=== PATIENT | female | born 1995 | race Two or more races ===

== ENCOUNTER 2024-10-09 15:49 | Emergency (ER) | payer OTHER ==
[~2024-10-09] VITALS: Ht 165.1 cm; Wt 98.4 kg
[2024-10-09] MEDS ORDERED: PRENATAL + DHA1 EAC1 (16:00)
[2024-10-09 16:01] VITALS: BP 113/74; O2SAT 99
[2024-10-09] MEDS ORDERED: CHILDREN'S ASPI81 MG (16:01)
[2024-10-09 17:00] LABS: HEMATOCRIT 31.8 % (36.0-45.00); HEMOGLOBIN 11.3 g/dL (12.0-15.00); MEAN CORPUSCULAR HEMOGLOBIN 29.1 pg (27.00-32.0); MEAN CORPUSCULAR HGB CONC 35.4 g/dl (32.0-36.0); PLATELET COUNT 338 K/uL (150-450); RED BLOOD COUNT 3.88 M/uL (4.00-6.00); RED CELL DISTRIBUTION WIDTH 14.7 % (11.5-14.5)
[2024-10-09 17:13] LABS: URINE APPEARANCE Cloudy; URINE BILIRRUBIN Negative (NEGATIVE); URINE BLOOD Small; URINE COLOR Yellow; URINE GLUCOSE Negative (NEGATIVE); URINE KETONE Negative (NEGATIVE); URINE LEUKOCYTE Moderate; URINE NITRATE Negative; URINE PROTEIN Negative (NEGATIVE)
[2024-10-09 17:17] LABS: URINE BACTERIA 4079.3 uL (0.0-1933); URINE EPITHELIAL CELLS 23.5 uL (0.0-38.8); URINE RBC 52.5 uL (0.0-20.8); URINE WBC 140.8 uL (0.0-23.2)
[2024-10-09 17:50] LABS: URINE CAST 1.03 uL (0.0-1.40)
[2024-10-09] MEDS ORDERED: NITROFURANTOIN100 MG PO (17:58)
[2024-10-09] MEDS ORDERED: PEPCID AC20 MG PO (17:58)
== END 2024-10-09 18:42 | disposition home or self-care (01) ==
LOC: ER 15:51
PROVIDERS: General Practice
DX: O26.891 Other specified pregnancy related conditions, first trimester (principal); Z3A.11 11 weeks gestation of pregnancy; Z88.0 Allergy status to penicillin

== ENCOUNTER 2024-10-28 19:43 | Emergency (ER) | payer OTHER ==
[~2024-10-28] VITALS: Ht 165.1 cm; Wt 94.8 kg
[~2024-10-28 19:43] MED LIST: CHILDREN'S ASPI81 MG; NITROFURANTOIN100 MG PO; PEPCID AC20 MG PO; PRENATAL + DHA1 EAC1
[2024-10-28] MEDS ORDERED: 0.9 % SODIUM CHLORIDE 500 ML IV ONE (21:45)
[2024-10-28 23:12] LABS: HEMATOCRIT 31.5 % (36.0-45.00); HEMOGLOBIN 10.6 g/dL (12.0-15.00); MEAN CELL VOLUME 84.4 fL (80.00-100.00); MEAN CORPUSCULAR HEMOGLOBIN 28.3 pg (27.00-32.0); MEAN CORPUSCULAR HGB CONC 33.6 g/dl (32.0-36.0); PLATELET COUNT 386 K/uL (150-450); RED BLOOD COUNT 3.74 M/uL (4.00-6.00); RED CELL DISTRIBUTION WIDTH 14.5 % (11.5-14.5)
[2024-10-28 23:31] LABS: ALBUMIN 3.3 gm/dL (3.4-5.0); BILIRUBIN TOTAL 0.21 mg/dL (0.3-1.2); CALCIUM 9.7 mg/dL (8.5-10.1); CREATININE SERUM 0.54 mg/dL (0.55-1.02); GFR 133.47; GLOBULINA 4.4 G/DL (2.4-3.5); POTASSIUM 3.73 mEq/L (3.5-5.1); TOTAL PROTEIN 7.7 gm/dL (6.4-8.2)
[2024-10-29] MEDS ORDERED: KETOROLAC TROMETHAMINE 30 MG VIAL IV ONE (00:30)
== END 2024-10-29 01:03 | disposition home or self-care (01) ==
LOC: ER 19:46
PROVIDERS: Preventive Medicine Public Health & General Preventive Medicine
DX: R51.9 Headache, unspecified (principal); Z88.0 Allergy status to penicillin; E86.0 Dehydration
CPT/HCPCS: 36415; 96365; 96366; 99282; J7030

== ENCOUNTER 2024-10-30 11:21 | Outpatient (CLI) | payer OTHER | END 2024-10-30 11:25 | disposition home or self-care (01) | LOC: PRENATAL 11:21 | PROVIDERS: ATTEND Obstetrics & Gynecology Maternal & Fetal Medicine | DX: O36.80X0 Pregnancy with inconclusive fetal viability, not applicable or unspecified (principal); Z36.82 Encounter for antenatal screening for nuchal translucency; O36.1999 Maternal care for other isoimmunization, unspecified trimester, other fetus; Z3A.13 13 weeks gestation of pregnancy ==

== ENCOUNTER 2024-12-01 15:18 | Emergency (ER) | payer OTHER ==
[~2024-12-01] VITALS: Ht 162.6 cm; Wt 95.3 kg
== END 2024-12-01 19:34 | disposition home or self-care (01) ==
LOC: ER 15:21
DX: O26.892 Other specified pregnancy related conditions, second trimester (principal); R10.2 Pelvic and perineal pain; Z3A.18 18 weeks gestation of pregnancy; Z88.0 Allergy status to penicillin

== ENCOUNTER 2024-12-18 15:34 | Outpatient (CLI) | payer OTHER | END 2024-12-18 15:35 | disposition home or self-care (01) | LOC: PRENATAL 15:34 | PROVIDERS: ATTEND Obstetrics & Gynecology Maternal & Fetal Medicine | DX: O44.00 Complete placenta previa NOS or without hemorrhage, unspecified trimester (principal); O36.1999 Maternal care for other isoimmunization, unspecified trimester, other fetus; Z3A.21 21 weeks gestation of pregnancy ==

== ENCOUNTER → 2025-02-09 14:53 | Outpatient (CLI) | payer OTHER | END | disposition home or self-care (01) | LOC: PRENATAL 14:53 | PROVIDERS: ATTEND Obstetrics & Gynecology Maternal & Fetal Medicine | DX: O26.849 Uterine size-date discrepancy, unspecified trimester (principal); O36.8199 Decreased fetal movements, unspecified trimester, other fetus; O36.1999 Maternal care for other isoimmunization, unspecified trimester, other fetus; Z3A.28 28 weeks gestation of pregnancy ==

== ENCOUNTER → 2025-03-20 08:39 | Outpatient (CLI) | payer OTHER | END | disposition home or self-care (01) | LOC: PRENATAL 08:39 | PROVIDERS: ATTEND Obstetrics & Gynecology Maternal & Fetal Medicine | DX: O26.849 Uterine size-date discrepancy, unspecified trimester (principal); O36.8199 Decreased fetal movements, unspecified trimester, other fetus; O36.1999 Maternal care for other isoimmunization, unspecified trimester, other fetus; O99.019 Anemia complicating pregnancy, unspecified trimester; Z3A.34 34 weeks gestation of pregnancy ==

== ENCOUNTER 2025-04-27 13:51 | Inpatient (IN) | payer OTHER ==
[~2025-04-27] VITALS: Ht 165.1 cm; Wt 3.2 kg
[2025-04-27 13:22] VITALS: BP 109/66
[2025-04-27] MEDS ORDERED: RINGERS SOLUTION,LACTATED 1,000 ML IV SCH (14:15)
[2025-04-27] MEDS ORDERED: CEFAZOLIN SODIUM 1,000 MG VIAL IV ONE (14:15)
[2025-04-27 14:49] LABS: URINE APPEARANCE Clear; URINE BILIRRUBIN Negative (NEGATIVE); URINE BLOOD Moderate; URINE COLOR Yellow; URINE GLUCOSE Negative (NEGATIVE); URINE KETONE Trace (NEGATIVE); URINE LEUKOCYTE Moderate; URINE NITRATE Negative; URINE PROTEIN Negative (NEGATIVE); URINE UROBILINOGEN 1.0 E.U./dl
[2025-04-27 14:52] LABS: URINE BACTERIA 662.2 uL (0.0-1933); URINE EPITHELIAL CELLS 39.0 uL (0.0-38.8); URINE RBC 15.5 uL (0.0-20.8); URINE WBC 112.5 uL (0.0-23.2)
[2025-04-27 14:55] LABS: URINE CAST 0.14 uL (0.0-1.40)
[2025-04-27] MEDS ORDERED: IRON18 M1 PO (14:55)
[2025-04-27 15:14] VITALS: BP 112/71
[2025-04-27 15:35] LABS: BASO % 0.4 % (0.1-1.2); EOS # 0.05 (0.04-0.54); EOS % 0.5 % (0.7-7.0); LYMPH # 1.57 (1.18-3.74); LYMPH % 15.1 % (19.3-53.1); MEAN PLATELET VOLUME 8.70 fl (9.4-12.4); MONO # 0.67 (0.24-0.82); MONO % 6.4 % (4.7-12.5); NEUT # 8.03 (1.56-6.13); NEUT % 77.2 % (34.0-71.1); RED CELL DISTRIBUTION WIDTH 15.4 % (11.6-14.4)
[2025-04-27 15:36] LABS: ALT/SGPT 23.0 U/L (12-78); AST/SGOT 15.0 U/L (15-37); BILIRUBIN TOTAL 0.36 mg/dL (0.3-1.2); BUN CREA RATIO 11.0 (7.0-25.0); CREATININE SERUM 0.55 mg/dL (0.55-1.02); GFR 129.78; GLOBULINA 4.2 G/DL (2.4-3.5); GLUCOSE FASTING 77.0 mg/dL (65-100); OSMOLALITY SERUM 276.0 MOSM/KG (275-295)
[2025-04-27 16:16] LABS: INR 0.95
[2025-04-27 18:04] VITALS: BP 124/75
[2025-04-27] MEDS ORDERED: MORPHINE SULFATE 4 MG/ML CARTRIDGE IV ONE (18:15)
[2025-04-27 19:15] VITALS: BP 124/78
[2025-04-27] MEDS ORDERED: CEFAZOLIN SODIUM 1,000 MG VIAL IV SCH (20:00)
[2025-04-27] MEDS ORDERED: OXYTOCIN 20 UNITS/1000ML RL PIGGYBAG IV ONE (22:58)
[2025-04-27] MEDS ORDERED: ERYTHROMYCIN BASE OPHT 1GM EACH TUBE OP ONE (22:58)
[2025-04-27] MEDS ORDERED: LIDOCAINE HCL 1% 10ML VIAL ONE (22:58)
[2025-04-27] MEDS ORDERED: CHLORHEXIDINE GLUCONATE 120 ML BOTTLE TOP ONE (22:58)
[2025-04-27] MEDS ORDERED: OXYTOCIN 10 UNITS/ML VIAL ONE (22:58)
[2025-04-27] MEDS ORDERED: OXYTOCIN 20 UNITS/500ML RL PIGGYBAG IV ONE (23:12)
[2025-04-27 23:19] VITALS: BP 129/67
[2025-04-28] VITALS (7 sets, daily range): BP systolic 99–166; BP diastolic 64–72
[2025-04-28] MEDS ORDERED: OXYTOCIN 500 ML IV ONE (00:15)
[2025-04-28] MEDS ORDERED: ERYTHROMYCIN BASE OPHT 1GM EACH TUBE OP ONE (01:30)
[2025-04-28] MEDS ORDERED: OXYTOCIN 1,000 ML IV SCH ×2 (01:30→02:00)
[2025-04-28] MEDS ORDERED: CHLORHEXIDINE GLUCONATE 120 ML BOTTLE TP SCH (01:30)
[2025-04-28] MEDS ORDERED: OXYTOCIN 10 UNITS/ML VIAL IM STA (01:30)
[2025-04-28] MEDS ORDERED: LIDOCAINE HCL 1% 10ML VIAL PERCUT ONE (01:45)
[2025-04-28 07:06] LABS: BASO % 0.2 % (0.1-1.2); EOS # 0.00 (0.04-0.54); EOS % 0.0 % (0.7-7.0); LYMPH # 1.15 (1.18-3.74); LYMPH % 5.6 % (19.3-53.1); MEAN PLATELET VOLUME 8.90 fl (9.4-12.4); MONO # 0.78 (0.24-0.82); MONO % 3.8 % (4.7-12.5); NEUT # 18.37 (1.56-6.13); NEUT % 89.4 % (34.0-71.1); RED CELL DISTRIBUTION WIDTH 15.3 % (11.6-14.4)
[2025-04-29 00:35] VITALS: BP 100/60
[2025-04-29 08:02] VITALS: BP 91/67
[2025-04-29 15:50] VITALS: BP 108/74
[2025-04-30 01:51] VITALS: BP 105/66
[2025-04-30 08:36] VITALS: BP 115/77
== END 2025-04-30 18:15 | disposition home or self-care (01) | DRG 807 ==
LOC: OB/GYN 13:51 → LDR 13:51 → OB/GYN 04-28 00:46
PROVIDERS: ADMIT Obstetrics & Gynecology; ATTEND Obstetrics & Gynecology
PROC: 4A1HXCZ Monitoring of Products of Conception, Cardiac Rate, External Approach (ICD-10-PCS; 2025-04-27)
PROC: 10E0XZZ Delivery of Products of Conception, External Approach (ICD-10-PCS; principal; 2025-04-28)
PROC: 0KQM0ZZ Repair Perineum Muscle, Open Approach (ICD-10-PCS; 2025-04-28)
DX: O70.1 Second degree perineal laceration during delivery (principal); Z37.0 Single live birth; Z3A.39 39 weeks gestation of pregnancy